=== PATIENT | female | born 1985 | race Hispanic/Latino ===

== ENCOUNTER 2016-07-22 15:57 | Emergency (ER) | payer OTHER ==
[~2016-07-22] VITALS: Ht 162.6 cm; Wt 19.8 kg
[~2016-07-22 15:57] MED LIST: BACTRIM,SEPT1 TABLET PO; FLEXERIL10 MG PO; FLEXERIL5 MG PO; NAPROSYN500 MG PO; NO HOME MEDS PO; PYRIDIUM200 MG PO; ULTRAM50 MG PO
[2016-07-22 20:11] VITALS: BP 105/70
== END 2016-07-22 20:11 | disposition home or self-care (01) ==
LOC: EME 15:57
PROC: 09C1XZZ Extirpation of Matter from Left External Ear, External Approach (ICD-10-PCS; principal; 2016-07-22)
PROC: 09C0XZZ Extirpation of Matter from Right External Ear, External Approach (ICD-10-PCS; 2016-07-22)
DX: H61.23 Impacted cerumen, bilateral (principal)
CPT/HCPCS: 99281; 99284

== ENCOUNTER 2017-06-03 22:24 | Emergency (ER) | payer OTHER ==
[~2017-06-03] VITALS: Ht 162.6 cm; Wt 75.8 kg
[2017-06-03 22:46] LABS: HEMATOCRIT 39.1 % (36.0-46.0); HEMOGLOBIN 12.9 G/DL (11.9-15.5); MCH 29.9 PG (29.0-34.0); MCV 90.7 FL (83-99); PLATELET COUNT 231 K/uL (156-360); RBC DIS.WIDTH-CV 12.7 % (11.8-14.6); RED BLOOD COUNT 4.31 M/uL (3.80-5.20); WHITE BLOOD COUNT 7.9 K/uL (4.1-10.2)
[2017-06-03 22:54] LABS: ALBUMIN 4.5 g/dL (3.2-4.8)
[2017-06-03 22:55] LABS: CHLORIDE 105 mEq/L (99-109); POTASSIUM 4.3 mEq/L (3.7-5.4); SODIUM 141 mEq/L (136-147)
[2017-06-03 22:57] LABS: GLUCOSE 88 mg/dL (70-99); TOTAL PROTEIN 7.7 g/dL (6.4-8.3)
[2017-06-03 22:59] LABS: TOTAL BILIRUBIN 0.4 mg/dL (0.0-1.0)
[2017-06-03 23:00] LABS: ALKALINE PHOSPHATASE 78 IU/L (3-129)
[2017-06-03 23:01] LABS: CREATININE 0.9 mg/dL (0.6-1.3); GFR ESTIMATE (CALCULATED) > 59 mL/min/
[2017-06-03 23:02] LABS: AST (GOT) 19 IU/L (2-34); UREA NITROGEN (BUN) 14 mg/dL (9-23)
[2017-06-03 23:03] LABS: ALT (GPT) 23 IU/L (3-49)
[2017-06-03 23:04] LABS: LIPASE 45 U/L (1.0-51.0)
[2017-06-03 23:10] LABS: QUANTITATIVE HCG < 4.0 MIU/ML
[2017-06-04 00:05] LABS: APPEARANCE CLEAR ((CLEAR)); BILIRUBIN NEGATIVE; BLOOD SMALL; COLOR YELLOW ((YELLOW)); GLUCOSE (STRIP) NEGATIVE; KETONES NEGATIVE; LEUKOCYTES TRACE; NITRITE NEGATIVE; PROTEIN (STRIP) NEGATIVE; UROBILINOGEN 0.2 MG/DL (0.2-1.0)
[2017-06-04 01:17] LABS: BACTERIA RARE /HPF; EPITHELIAL CELLS 1+ /HPF; MUCUS 1+ /LPF; RED BLOOD CELLS 0-5 /HPF (0-5); UCUL ADDED? NO; WHITE BLOOD CELLS 0-5 /HPF (0-5)
[2017-06-04 01:55] VITALS: BP 120/72
== END 2017-06-04 01:58 | disposition home or self-care (01) ==
LOC: EME 22:24
PROVIDERS: Physician Assistant
DX: R55 Syncope and collapse (principal); J45.909 Unspecified asthma, uncomplicated; Z88.0 Allergy status to penicillin
CPT/HCPCS: 80053; 81003; 83690; 84702; 85027; 87502; 93005; 99281; 99285